=== PATIENT | male | born 1975 | race Caucasian/White ===

== ENCOUNTER 2017-02-10 10:54 | Day surgery (SDC) | payer BC, SELFPAY ==
[~2017-02-10 10:54] MED LIST: TYLENOL325 M2 PO
[2017-02-10 12:12] LABS: BASO % 0.5 % (0-2); EOS % 2.4 % (0-7); EOSINOPHIL ABSOLUTE COUNT 0.1 tho/cmm (0.0-0.7); HCT-HEMATOCRIT 42.3 % (36.0-53.5); HGB-HEMOGLOBIN 13.8 gm/dl (13.5-17.0); LYMPH ABSOLUTE COUNT 1.3 tho/cmm (0.8-4.5); MCH (MEAN CORPUSCULAR HGB) 26.1 pg (28.0-32.0); MCHC MEAN CORPUSCULAR HGB CONC 32.6 % (32.0-36.0); MEAN PLATELET VOLUME 10.8 cmc (9.4-12.4); MONO % 6.2 % (0-12); MONOCYTE ABSOLUTE COUNT 0.3 tho/cmm (0.0-1.2); NEUTROPHIL ABSOLUTE COUNT 3.7 tho/cmm (1.6-8.0); NEUTROPHIL-AUTOMATED 3.7 tho/cmm (1.6-8.0); NEUTROPHILS % 66.9 % (40-80); PLATELET COUNT 442 tho/cmm (150-450); RED BLOOD COUNT 5.29 mil/cmm (4.40-5.70); RED CELL DISTRIBUTION WIDTH 14.1 % (12.4-16.4); WHITE BLOOD COUNT 5.5 tho/cmm (4.0-10.0)
[2017-02-11] MEDS ORDERED: NORCO 5-325 TA1 EACH PO (07:59)
--- NOTE | 2017-02-11 09:07 | NUR ---
0900 VIRTUAL NURSE NOTE: PATIENT DISCHARGE INSTRUCTIONS COMPLETED. PT AND VERBALIZE GOOD UNDERSTANDING OF TEACHING. SENT WITH RX FOR [place]. Mirian HO RN
== END 2017-02-11 09:15 ==
LOC: SRG 10:54 → SHSB 10:57 → ORE 12:28 → PACU 14:46 → 5WD 16:31
PROVIDERS: Anesthesiology
PROC: 0GTG0ZZ Resection of Left Thyroid Gland Lobe, Open Approach (ICD-10-PCS; principal; 2017-02-10)
DX: D34 Benign neoplasm of thyroid gland (principal); J32.9 Chronic sinusitis, unspecified; Z87.891 Personal history of nicotine dependence; Z79.899 Other long term (current) drug therapy
CPT/HCPCS: J1100; J1170